=== PATIENT | male | born 1950 | race Caucasian/White ===

== ENCOUNTER 2017-12-11 05:30 | Day surgery (SDC) | payer OTHER | END 2017-12-11 11:10 | disposition home or self-care (01) | LOC: AMB-ENDOS 05:30 | DX: R15.9 Full incontinence of feces (principal); Z85.048 Personal history of other malignant neoplasm of rectum, rectosigmoid junction, and anus ==

== ENCOUNTER 2020-06-22 05:30 | Day surgery (SDC) | payer OTHER | END 2020-06-22 10:55 | disposition home or self-care (01) | LOC: AMB-ENDOS 05:30 | PROVIDERS: ATTEND Colon & Rectal Surgery | DX: K62.89 Other specified diseases of anus and rectum (principal); Z12.11 Encounter for screening for malignant neoplasm of colon; Z20.828 Contact with and (suspected) exposure to other viral communicable diseases; K64.8 Other hemorrhoids ==